=== PATIENT | male | born 1980 | race Caucasian/White ===

== ENCOUNTER → 2017-04-08 | Outpatient (CLI) | payer OTHER | LOC: BRMIMAGING 14:10 | PROVIDERS: ATTEND Internal Medicine Rheumatology | DX: M19.041 Primary osteoarthritis, right hand (principal); M20.031 Swan-neck deformity of right finger(s); M85.872 Other specified disorders of bone density and structure, left ankle and foot | CPT/HCPCS: 73130-PO; 73630-PO ==